=== PATIENT | female | born 1975 | race Caucasian/White ===

== ENCOUNTER → 2020-02-24 | Outpatient (CLI) | payer OTHER ==
--- NOTE | 2020-02-25 16:49 | MAM ---
EXAM DESCRIPTION: 3D Diagnostic, Bilateral (accession [id number]), Breast,Left (accession [id number]): Ultrasound CLINICAL HISTORY: 44 yearsFemaleABNORMAL MAMMOGRAM bilateral dense breasts. Increased fiber glandular elements in the posterior third, lateral and upper outer quadrant left breast on screening study. Prior studies are now available. No personal history of breast cancer. Remote family history of breast cancer. Menarche age 14. Childbirth age 18. Premenopausal. No HRT. Lifetime risk of developing breast cancer (Tyrer-Cuzick model)(%): 7.2. COMPARISON: Bilateral screening digital breast tomosynthesis January 20. Bilateral digital diagnostic 2-D breast mammography November 2014. TECHNIQUE: Bilateral LM projection full-field images, digital tomosynthesis technique. Bilateral 2-D digital full-field images: LM and CC projections. CAD available for 2-D images.. Transcutaneous scanning of the left breast utilizing graff-scale and Doppler modes. Scanning performed by the steeping press operator and Dr. Garcia. FINDINGS: The breast parenchymal density pattern is: Heterogeneously dense breast tissue, which may obscure small masses. No skin thickening or nipple retraction bilateral solitary microcalcifications. Bilateral fibroglandular tissues upper outer quadrant posterior third, more in the upper outer quadrant left breast than right. No new focal, stellate mass or density, focal asymmetry , and no suspicious microcalcifications bilaterally. Stable mammograms compared to prior study, taking into account differences in mammographic technique Ultrasound: Ultrasound of the upper outer quadrant posterior and middle third left breast. Mostly fibroglandular tissues with minimal fatty replacement. Well-defined subcutaneous anechoic circumscribed mass measuring 1.6 x 1.3 cm. A second cyst measures 4.7 x 5.3 mm. Both cysts demonstrate posterior acoustic enhancement, wider than tall orientation, and no vascularity. IMPRESSION: Benign exam. Fibrocystic tissues bilaterally. BIRAD CATEGORY: 2 BENIGN FINDINGS. RECOMMENDATIONS: FOLLOW UP: Return to routine digital bilateral mammographic screening, one year interval from January 2020. Written communication explaining the IMPRESSION and follow-up, will be mailed to the patient and referring health care provider. The FINDINGS and the FOLLOW-UP plan were reviewed in person with the patient after the examination. According to the [employer], yearly mammograms are recommended starting at age 40 and continuing as long as a woman is in good health. Any breast change noted on a breast self-exam should be reported promptly to the patient's healthcare provider. Breast MRI is recommended for women with an approximately 20-25% or greater lifetime risk of breast cancer, including women with a strong family history of breast or ovarian cancer and women who have been treated for Hodgkin's disease. A negative mammographic report should not delay tissue diagnosis in patients with significant clinical history or physical findings. Extremely dense breast tissue limits the sensitivity of digital mammography. Electronically signed by: Joe Garcia MD 02/25/2020 4:48 PM CDT
== END ==
LOC: MAMMO 11:10
PROVIDERS: ATTEND Family Medicine
DX: N60.11 Diffuse cystic mastopathy of right breast (principal); N60.12 Diffuse cystic mastopathy of left breast
CPT/HCPCS: 76641; 77066; G0279